=== PATIENT | male | born 1970 | race Caucasian/White ===

== ENCOUNTER 2023-09-29 17:25 | Emergency (ER) | payer BC, SELFPAY ==
--- NOTE | ~2023-09-29 | XR_ITS ---
EXAMINATION: XR chest 2V Exam Date/Time: 09/29/2023 18:26 PHP MAGENTO DEVELOPER HISTORY: cough Comparison: None. RESULT: Lines, tubes, and devices: None. Lungs and pleura: Hazy left mid and lower lung opacities, mild diffuse reticular opacities and promi nent pulmonary vessels. Cardiomediastinal silhouette: Stable. Other: Moderate anterior wedge deformity at L1. No acute upper abdominal finding. IMPRESSION: Pulmonary vascular congestion. Pulmonary opacities may represent asymmetric edema or infection. Moderate anterior wedge deformity at L1, presumably chronic unless accompanied by acute pain/tenderne ss Reviewed, dictated and finalized at location K. MAGENTO DEVELOPER IMPRESSION: Pulmonary vascular congestion. Pulmonary opacities may represent asymmetric edema or infection. Moderate anterior wedge deformity at L1, presumably chronic unless accompanied by acute pain/tenderness
[2023-09-29 17:38] VITALS: BP 151/57; PULSE 73; RESP 16; TEMP 36.8; O2SAT 100
--- NOTE | 2023-09-29 18:15 | ED.URI ---
HPI - URI/Sore Throat General Chief Complaint: Upper Respiratory Infection Stated Complaint: FEVER/SWEATY Source: patient Mode of arrival: ambulatory Limitations: no limitations History of Present Illness HPI Narrative: 53-year-old male presented for complaint of feeling ill for one week following Covid and flu vaccination, with fever up to 103.6. States he has been waking in the night drenched in sweat, and has sweats throughout the day. States he has sob with exertion, needs to sit after walking up stairs, and feels sob after bending over. Endorses occasional cough and mild nasal congestion. Tested negative for covid yesterday. Not taking anything for symptoms. Denies sick contacts. States he was dx with CHF this spring, and admits to only taking the water pill maybe 2 days/week. Denies cp, palpitations, swelling, wheezing, n/v/d or lethargy. Related Data Home Medications Medication Instructions Recorded Confirmed furosemide 20 mg tablet 20 mg PO QAM 04/23/23 09/29/23 lisinopril 40 mg tablet 40 mg PO DAILY 04/23/23 09/29/23 metoprolol tartrate 25 mg tablet 25 mg PO BID 04/23/23 09/29/23 pantoprazole 40 mg tablet,delayed 40 mg PO QAM 04/23/23 09/29/23 release (Protonix) rivaroxaban 10 mg tablet (Xarelto) 10 mg PO DAILY 04/23/23 09/29/23 tamsulosin 0.4 mg capsule (Flomax) 0.4 mg PO DAILY 04/23/23 09/29/23 Allergies Allergy/AdvReac Type Severity Reaction Status Date / Time No Known Allergies Allergy Verified 09/29/23 17:47 Review of Systems Review of Systems: CONSTITUTIONAL: reports fever, chills, sweats. EYES: Denies visual changes, redness, or discharge. ENT: Reports rhinorrhea, denies sore throat, or otalgia. CARDIOVASCULAR: Denies chest pain, palpitations, or edema. RESPIRATORY: Reports cough, sob, denies wheezing. GASTROINTESTINAL: Denies abdominal pain, nausea, vomiting, or diarrhea. GENITOURINARY: Denies dysuria or hematuria. SKIN: Denies rash, itching, or wounds. MUSCULOSKELETAL: Denies back pain, joint pain, or myalgia. NEUROLOGIC: Denies headache, numbness, tingling, or weakness. All systems reviewed & are unremarkable except as noted in HPI and below PMFSH Past Medical History Medical History Bicuspid aortic valve BPH (benign prostatic hyperplasia) CHF (congestive heart failure) Depression GERD (gastroesophageal reflux disease) Gout History of pulmonary embolism HLD (hyperlipidemia) Hypertension Low testosterone Shift work sleep disorder Surgical History Surgical History History of carpal tunnel release of both wrists History of shoulder surgery right x 3 Family History Family History Father Hypertension Mother Hypertension Social History Social History Smoking status: Never smoker Alcohol intake: never Substance use: never Living arrangements: with family Gender identity (if verbalized by the patient): Male Comments At time of signature, I have reviewed and agree with nursing past medical, surgical, social and family history unless otherwise noted. Please see nursing chart for further information. There is no relevant family history pertinent to the presenting complaint Exam Narrative: GENERAL: Well-appearing, in no acute distress. EYES: EOMI. No redness or drainage. Conjunctivae normal. ENT: Mucous membranes pink and moist. No rhinorrhea. TMs normal bilaterally. Throat normal. Uvula midline. NECK: Normal AROM. Supple. CHEST: No respiratory distress. Lungs clear to all rossi. HEART: Regular rate and rhythm. Murmur appreciated. ABDOMEN: Soft, nontender, nondistended, normal active bowel sounds. EXTREMITIES: Normal range of motion. No edema. SKIN: Warm, dry, no rash. Capillary refill normal. Normal skin turgor. NEURO: Alert and oriented
== END 2023-09-29 19:07 | disposition home or self-care (01) ==
PROVIDERS: Emergency Provider Nurse Practitioner Family; PCP Family Medicine
DX: R06.02 Shortness of breath (principal); N40.0 Benign prostatic hyperplasia without lower urinary tract symptoms; I11.0 Hypertensive heart disease with heart failure; I50.9 Heart failure, unspecified; K21.9 Gastro-esophageal reflux disease without esophagitis; M10.9 Gout, unspecified
CPT/HCPCS: 71046; 99213; G0463

== ENCOUNTER 2023-10-04 09:54 | Emergency (ER) | payer BC, SELFPAY ==
[2023-10-04] VITALS (13 sets, daily range): BP systolic 127–140; BP diastolic 54–63; PULSE 61–83; RESP 0–26; TEMP 36.2–37.9; O2SAT 94–100
--- NOTE | ~2023-10-04 | CT_ITS ---
EXAMINATION: CTA chest PE protocol DATE: 10/04/2023 11:06 INDICATION: Shortness of breath, elevated d-dimer TECHNIQUE: Computed tomography angiography (CTA) of the chest was performed with 100 mL Omnipaque-350 intravenous contrast timed to evaluate the pulmonary arteries. Coronal maximum intensity projection 3D-reconstructions were created by the technologist. The dose-length product (DLP) was 538.03 mGy-cm. Automated exposure control and iterative reconstruction technique were employed. COMPARISON: None. FINDINGS: The pulmonary arteries are well-opacified. No pulmonary embolism is identified. There is en largement of the main and central pulmonary arteries, consistent with pulmonary hypertension. Cardiom egaly is noted. There are no pathologically enlarged thoracic lymph nodes. There is mild smooth inter lobular septal thickening of the lungs. Subtle groundglass opacities are noted. No pleural effusion o r pneumothorax. There is a 10 mm cyst of the left hepatic lobe. There is a 3 mm nonobstructing stone of right kidney. There are surgical changes of the right shoulder. There is mild thoracic spondylosis . Mild anterior vertebral body wedging at the thoracolumbar junction is likely physiologic. IMPRESSION: 1. No pulmonary embolus identified. 2. Cardiomegaly with mild pulmonary edema. 3. Findings consistent with pulmonary hypertension. Reviewed, dictated and finalized at location F. TY SCIENTIST
--- NOTE | ~2023-10-04 | XR_ITS ---
EXAMINATION: XR chest 2V DATE: 10/04/2023 10:28 INDICATION: Shortness of breath and fever TECHNIQUE: PA and lateral views of the chest are obtained. COMPARISON: 09/29/2023 FINDINGS: There is a persistent mild diffuse interstitial pattern. No pleural effusion or pneumothora x. Cardiomegaly is noted. There is mild anterior wedging of lower thoracic and upper lumbar vertebral bodies, likely physiologic. Surgical changes are noted in the right shoulder. IMPRESSION: 1. Cardiomegaly with mild pulmonary edema. Reviewed, dictated and finalized at location F. ICATIONS SYSTEM ANALYST
--- NOTE | 2023-10-04 10:01 | ECG_ITS ---
Measurements Intervals [place] Rate: 63 P: 12 AL: 174 QRS: 61 QRSD: 115 T: 92 QT: 429 QTc: 439 Interpretive Statements SINUS RHYTHM ATRIAL PREMATURE COMPLEX BORDERLINE R WAVE PROGRESSION, ANTERIOR LEADS NONSPECIFIC ST & T-WAVE ABNORMALITY- LAT/HIGH LAT LEADS BASELINE ARTIFACT- I, II, AVR, AVL, AVF BORDERLINE ECG NO PREVIOUS ECG AVAILABLE FOR COMPARISON Electronically Signed On 10-04-2023 11:01:38 GYM MANAGER by Danyel Singh D.O.
--- NOTE | 2023-10-04 10:07 | ED.GENADULT ---
HPI - General Adult General Chief complaint: Shortness of Breath/Dyspnea Stated complaint: SOB Time Seen by Provider: 10/04/23 09:58 History of Present Illness HPI narrative: 53-year-old male with history of a bicuspid aortic valve and early onset CHF presents to the emergency department for evaluation of intermittent fevers and shortness breath. Patient states symptoms started few weeks ago when he was running a high fever. Patient did follow-up with the urgent care at that time and patient was negative for COVID. Patient was instructed to restart his medications. Patient states he did begin to feel improved both course of the last few days he has had worsening of his symptoms. Related Data Home Medications Medication Instructions Recorded Confirmed furosemide 20 mg tablet 20 mg PO QAM 04/23/23 09/29/23 lisinopril 40 mg tablet 40 mg PO DAILY 04/23/23 09/29/23 metoprolol tartrate 25 mg tablet 25 mg PO BID 04/23/23 09/29/23 pantoprazole 40 mg tablet,delayed 40 mg PO QAM 04/23/23 09/29/23 release (Protonix) rivaroxaban 10 mg tablet (Xarelto) 10 mg PO DAILY 04/23/23 09/29/23 tamsulosin 0.4 mg capsule (Flomax) 0.4 mg PO DAILY 04/23/23 09/29/23 Allergies Allergy/AdvReac Type Severity Reaction Status Date / Time No Known Allergies Allergy Verified 10/04/23 09:55 Review of Systems Review of Systems: All systems reviewed & are unremarkable except as noted in HPI and below PMFSH Past Medical History Medical History Bicuspid aortic valve BPH (benign prostatic hyperplasia) CHF (congestive heart failure) Depression GERD (gastroesophageal reflux disease) Gout History of pulmonary embolism HLD (hyperlipidemia) Hypertension Low testosterone Shift work sleep disorder Surgical History Surgical History History of carpal tunnel release of both wrists History of shoulder surgery right x 3 Family History Family History Father Hypertension Mother Hypertension Social History Social History Smoking status: Never smoker Alcohol intake: never Substance use: never Living arrangements: with family Gender identity (if verbalized by the patient): Male Exam Narrative: APPEARANCE: Well appearing, no pain, no distress, well-nourished. HEAD: normocephalic, atraumatic. EYES: PERRLA/EOMI, conjunctivae clear. NOSE: Normal no drainage EARS:TMS clear with good light reflex. THROAT: Pharynx clear, no exudate. NECK: Supple. No adenopathy, no masses. RESPIRATORY: Airway patent, respirations nonlabored. Clear to auscultation bilaterally, no rales, rhonchi, wheezing. CARDIOVASCULAR: Regular rate and rhythm without murmurs rubs or gallops. ABDOMINAL: Soft, nontender, nondistended, normal bowel sounds MUSCULOSKELETAL: Moves all extremities. Strength/ROM intact, No edema, No calf tenderness. NEURO: Alert. Cranial nerves II through XII intact. Good gait. Good coordination SKIN: Warm, dry. Normal Color Course Course Emergency Course: 53-year-old male presents to the emergency department for evaluation of intermittent fever and shortness of breath. Patient was afebrile, patient does have a leukocytosis of 12.2 and hemoglobin of 10.8. His x-ray did show cardiomegaly. Patient's D-dimer was elevated in PE study showed no evidence of pulmonary embolism. Patient does feel improved with treatment. Patient and family are updated on results of the workup beta was encouraged close follow-up with his primary care physician and with cardiology. All questions and concerns were addressed and patient was well-appearing at time of discharge. Vital Signs Vital signs: Vital Signs Temperature 97.1 F L 10/04/23 10:14 Pulse Rate 64 10/04/23 10:14 Respiratory Rate 18 10/04/23 10:14 Blood Pressure 133/62
[2023-10-04 10:19] LABS: Basophils Percent Auto 0.2 % (0.2-1.2); Eosinophils Absolute Auto 0.2 K/mm3 (0-0.3); Eosinophils Percent Auto 1.6 % (0-4.4); Hematocrit 35.4 % (42.0-52.0); Hemoglobin 10.8 g/dL (14.0-18.0); Immature Granulocyte Absolute 0.08 K/mm3 (0.00-0.031); Immature Granulocyte Percent A 0.7 % (0-0.5); Lymphocytes Absolute Auto 1.41 K/mm3 (0.9-3.2); Lymphocytes Percent Auto 11.5 % (18.3-44.2); Mean Corpuscular HGB Conc 30.5 g/dl (32-36); Mean Corpuscular Volume 85.1 fl (80-100); Mean Platelet Volume 9.3 fl (7.4-10.4); Monocytes Absolute Auto 0.8 K/mm3 (0.1-0.6); Monocytes Percent Auto 6.5 % (2.6-8.5); Neutrophils Absolute Auto 9.7 K/mm3 (1.3-6.7); Neutrophils Percent Auto 79.5 % (45.5-73.1); Platelet Count Result 212 k/mm3 (150-375); Red Blood Count 4.16 M/mm3 (4.6-6.20); White Blood Count 12.2 K/mm3 (4.5-10.0)
[2023-10-04 10:29] LABS: Alanine Aminotransferase 47 U/L (6-50); Albumin Level 3.9 g/dL (3.5-5.1); Alkaline Phosphatase 102 U/L (38-126); Anion Gap 11 mmol/L (8-16); Aspartate Amino Transferase 37 U/L (17-59); Bilirubin,Total 0.7 mg/dL (0.2-1.3); Blood Urea Nitrogen 18 mg/dL (9-20); Carbon Dioxide 25 mmol/L (22-30); Chloride 105 mmol/L (98-107); Estimated Glomerular Filt Rate > 60; Glucose 143 mg/dL (65-110); Sodium 141 mmol/L (137-145)
[2023-10-04 10:37] LABS: D Dimer 0.62 ug/mL (<0.48)
[2023-10-04 10:56] LABS: Influenza A QL RT-PCR Negative (Negative); Influenza B QL RT-PCR Negative (Negative); RSV RNA, RT-PCR Negative (Negative); SARS-CoV-2 RNA PCR Negative (Negative)
[2023-10-04 11:10] LABS: Troponin I 0.016 ng/mL (0.000-0.034)
[2023-10-04 13:58] LABS: Troponin I 0.013 ng/mL (0.000-0.034)
== END 2023-10-04 14:59 | disposition home or self-care (01) ==
PROVIDERS: Emergency Provider Emergency Medicine; PCP Family Medicine
DX: R06.02 Shortness of breath (principal); R53.83 Other fatigue; Z20.822 Contact with and (suspected) exposure to COVID-19; Q23.1 Congenital insufficiency of aortic valve; I50.9 Heart failure, unspecified; I11.0 Hypertensive heart disease with heart failure; E78.5 Hyperlipidemia, unspecified; N40.0 Benign prostatic hyperplasia without lower urinary tract symptoms; K21.9 Gastro-esophageal reflux disease without esophagitis; M10.9 Gout, unspecified; Z86.711 Personal history of pulmonary embolism; I51.7 Cardiomegaly; I49.1 Atrial premature depolarization; R94.31 Abnormal electrocardiogram [ECG] [EKG]
CPT/HCPCS: 36415; 71046; 71275; 80053; 84484; 85025; 85380; 87637; 93005; 99284; Q9967

== ENCOUNTER 2023-10-08 16:00 | Outpatient (CLI) | payer BC, SELFPAY ==
[2023-10-08 16:47] LABS: Basophils Percent Auto 0.4 % (0.2-1.2); Eosinophils Absolute Auto 0.2 K/mm3 (0-0.3); Eosinophils Percent Auto 1.8 % (0-4.4); Hematocrit 35.6 % (42.0-52.0); Immature Granulocyte Absolute 0.04 K/mm3 (0.00-0.031); Immature Granulocyte Percent A 0.4 % (0-0.5); Lymphocytes Absolute Auto 1.22 K/mm3 (0.9-3.2); Lymphocytes Percent Auto 11.4 % (18.3-44.2); Mean Corpuscular HGB Conc 30.9 g/dl (32-36); Mean Corpuscular Hemoglobin 26.1 pg (26-34); Mean Corpuscular Volume 84.4 fl (80-100); Mean Platelet Volume 9.6 fl (7.4-10.4); Monocytes Absolute Auto 0.8 K/mm3 (0.1-0.6); Monocytes Percent Auto 7.3 % (2.6-8.5); Neutrophils Absolute Auto 8.5 K/mm3 (1.3-6.7); Neutrophils Percent Auto 78.7 % (45.5-73.1); Platelet Count Result 326 k/mm3 (150-375); Red Blood Count 4.22 M/mm3 (4.6-6.20); Red Cell Distribution Width 15.9 % (11.5-14.5); White Blood Count 10.7 K/mm3 (4.5-10.0)
[2023-10-08 16:48] LABS: Appearance Urine Clear (Clear); Bilirubin Urine Negative (Negative); Blood Urine Negative (Negative); Color Urine Yellow (Yellow); Glucose Urine UA Negative (Negative); Ketones Urine Trace mg/dL (Negative); Leukocyte Esterase Ur Negative LEU/UL (NEGATIVE); Nitrate Urine Negative (Negative); Protein Urine Negative (Negative); Specific Grav Ur 1.024 (1.001-1.035); pH Urine 5.5 (5.0-9.0)
[2023-10-08 16:56] LABS: Add Urine Microscopic? NO
[2023-10-08 16:57] LABS: Alanine Aminotransferase 46 U/L (6-50); Alkaline Phosphatase 122 U/L (38-126); Anion Gap 14 mmol/L (8-16); Aspartate Amino Transferase 31 U/L (17-59); Bilirubin,Total 0.9 mg/dL (0.2-1.3); Blood Urea Nitrogen 24 mg/dL (9-20); Calcium 9.2 mg/dL (8.4-10.2); Carbon Dioxide 25 mmol/L (22-30); Chloride 102 mmol/L (98-107); Estimated Glomerular Filt Rate > 60; Glucose 109 mg/dL (65-110); Potassium 3.6 mmol/L (3.4-5.0); Sodium 141 mmol/L (137-145)
== END 2023-10-08 16:01 | disposition home or self-care (01) ==
LOC: ANHLAB 16:01
PROVIDERS: PCP Family Medicine; Visit Provider Physician Assistant
DX: N39.0 Urinary tract infection, site not specified (principal); R50.9 Fever, unspecified; R10.9 Unspecified abdominal pain; R31.9 Hematuria, unspecified
CPT/HCPCS: 36415; 80053; 81003; 85025; 87086

== ENCOUNTER 2023-10-09 09:43 | Emergency (ER) | payer BC, SELFPAY ==
--- NOTE | ~2023-10-09 | XR_ITS ---
EXAMINATION: XR cervical spine 4-5V DATE: 10/09/2023 10:24 INDICATION: Right-sided neck pain. TECHNIQUE: 4 views of cervical spine were obtained. COMPARISON: None. FINDINGS: There is 12 degrees dextroscoliosis of cervical spine. There is kyphosis of cervical spine. There is 2 mm retrolisthesis of C6 on C7. There is mild chronic anterior wedging of C6 vertebral bod y. There is mildly decreased disc height at C4-C5 and C5-C6 and moderately decreased disc height at C 6-C7. There is multilevel uncovertebral joint osteoarthritis, severe on the right at C4-C5 and bilate rally at C6-C7. There is multilevel mild facet joint osteoarthritis. There is mild central canal sten osis at C5-C6 and C6-C7. No prevertebral soft tissue swelling. IMPRESSION: 1. Moderate cervical spondylosis. 2. Cervical kyphosis and dextroscoliosis. Reviewed, dictated and finalized at location A. SCIENCE TECHNICAL OFFICER
[2023-10-09 09:58] VITALS: BP 142/65; PULSE 74; RESP 16; TEMP 35.6; O2SAT 100
--- NOTE | 2023-10-09 10:03 | ED.NECK ---
HPI - Neck Pain/Injury General Chief Complaint: Neck Pain/Injury Stated Complaint: NECK PAIN Time Seen by Provider: 10/09/23 10:06 Source: patient Mode of arrival: ambulatory Limitations: no limitations History of Present Illness HPI Narrative: 53 year old male presenting for complaint of neck pain for 6 days. He states pain is slightly worse than onset. Pain is to the back of the neck, shoots to right shoulder. Pain worse when turning head or any head movements, reports slightly decreased ROM to neck due to pain. Reports full ROM to upper extremities without neck pain. Denies numbness, tingling or weakness of upper extremities; denies confusion, lethargy, n/v/d/f/c. Patient reports no fever for 2 days, after recent illness. Taking occasional ibuprofen and changed his pillow. Related Data Home Medications Medication Instructions Recorded Confirmed furosemide 20 mg tablet 20 mg PO QAM 04/23/23 10/09/23 lisinopril 40 mg tablet 40 mg PO DAILY 04/23/23 10/09/23 metoprolol tartrate 25 mg tablet 25 mg PO BID 04/23/23 10/09/23 pantoprazole 40 mg tablet,delayed 40 mg PO QAM 04/23/23 10/09/23 release (Protonix) rivaroxaban 10 mg tablet (Xarelto) 10 mg PO DAILY 04/23/23 10/09/23 tamsulosin 0.4 mg capsule (Flomax) 0.4 mg PO DAILY 04/23/23 10/09/23 Allergies Allergy/AdvReac Type Severity Reaction Status Date / Time No Known Allergies Allergy Verified 10/09/23 09:48 Review of Systems Review of Systems: CONSTITUTIONAL: Denies body aches, fever, chills EYES: Denies visual changes, photophobia CARDIOVASCULAR: Denies chest pain, palpitations, or edema. RESPIRATORY: Denies cough or dyspnea. GASTROINTESTINAL: Denies abdominal pain, nausea, vomiting, or diarrhea. SKIN: Denies rash, itching, or wounds. MUSCULOSKELETAL: reports neck pain, denies back pain or myalgias NEUROLOGIC: Denies headache, numbness, tingling, or weakness. All systems reviewed & are unremarkable except as noted in HPI and below PMFSH Past Medical History Medical History Bicuspid aortic valve BPH (benign prostatic hyperplasia) CHF (congestive heart failure) Depression GERD (gastroesophageal reflux disease) Gout History of pulmonary embolism HLD (hyperlipidemia) Hypertension Low testosterone Shift work sleep disorder Surgical History Surgical History History of carpal tunnel release of both wrists History of shoulder surgery right x 3 Family History Family History Father Hypertension Mother Hypertension Social History Social History Smoking status: Never smoker Alcohol intake: never Substance use: never Living arrangements: with family Gender identity (if verbalized by the patient): Male Comments At time of signature, I have reviewed and agree with nursing past medical, surgical, social and family history unless otherwise noted. Please see nursing chart for further information. There is no relevant family history pertinent to the presenting complaint Exam Narrative: GENERAL: Well-appearing, and in no acute distress. HEAD: Normocephalic, atraumatic. EYES: conjunctivae clear NECK: Supple.slightly decreased ROM due to reported pain in neck to right paraspinal region approx C4-7. No vpt or paraspinal tenderness with palpation CHEST: Speaks in full sentences. No respiratory distress. HEART: Regular rate and rhythm. Normal and equal peripheral pulses. MUSC: No Vertebral point tenderness. BUEs with normal strength and sensation, normal range of motion without neck pain with movement. No open wounds, or obvious deformity; alignment normal, pulse palpable and equal bilaterally, skin warm, dry, pink. Capillary refill less than 3 seconds. Gait steady. SKIN: Warm, dry, no rash. NEURO: Alert and oriented x3. Nec
== END 2023-10-09 10:55 | disposition home or self-care (01) ==
PROVIDERS: Emergency Provider Nurse Practitioner Family; PCP Family Medicine
DX: M54.12 Radiculopathy, cervical region (principal); N40.0 Benign prostatic hyperplasia without lower urinary tract symptoms; K21.9 Gastro-esophageal reflux disease without esophagitis; M10.9 Gout, unspecified; E78.5 Hyperlipidemia, unspecified; I11.0 Hypertensive heart disease with heart failure; I50.9 Heart failure, unspecified; Z79.01 Long term (current) use of anticoagulants
CPT/HCPCS: 72050; 99213; G0463

== ENCOUNTER 2023-10-11 20:30 | Emergency (ER) | payer BC, SELFPAY ==
[2023-10-11 20:32] VITALS: BP 152/47; PULSE 91; RESP 17; TEMP 37.8; O2SAT 95
== END 2023-10-12 01:16 | disposition left against medical advice (07) ==
LOC: ANHED 10-12 00:29
PROVIDERS: PCP Family Medicine
DX: M54.2 Cervicalgia (principal)
CPT/HCPCS: 99199

== ENCOUNTER 2024-01-14 12:37 | Outpatient (CLI) | payer BC, SELFPAY ==
[2024-01-14 13:49] LABS: INR 2.3; Prothrombin Time 26.6 Seconds (11.1-14.7)
== END 2024-01-14 12:38 | disposition home or self-care (01) ==
PROVIDERS: PCP Family Medicine
DX: Z95.2 Presence of prosthetic heart valve (principal)
CPT/HCPCS: 36415; 85610

== ENCOUNTER 2024-03-26 11:00 | Outpatient (RCR) | payer BC, SELFPAY ==
[2024-03-25 09:28] VITALS: PULSE 69
== END 2024-04-23 12:02 | disposition home or self-care (01) ==
LOC: ANHCPREHAB 11:00
PROVIDERS: PCP Family Medicine; Visit Provider Specialist
DX: Z95.2 Presence of prosthetic heart valve (principal)
CPT/HCPCS: 93798

== ENCOUNTER 2024-04-17 14:50 | Outpatient (RCR) | payer BC, SELFPAY ==
[2024-02-08 12:13] LABS: INR 2.9; Prothrombin Time 32.1 Seconds (11.1-14.7)
[2024-02-15 17:16] LABS: INR 2.8; Prothrombin Time 32.3 Seconds (11.1-14.7)
[2024-03-13 11:12] LABS: Prothrombin Time 24.2 Seconds (11.1-14.7)
[2024-03-19 14:07] LABS: INR 2.5; Prothrombin Time 28.5 Seconds (11.1-14.7)
[2024-03-28 12:46] LABS: INR 2.4; Prothrombin Time 28.4 Seconds (11.1-14.7)
[2024-04-17 15:43] LABS: Prothrombin Time 39.4 Seconds (11.1-14.7)
== END 2024-05-08 23:59 | disposition home or self-care (01) ==
LOC: ANHLAB 14:50
PROVIDERS: PCP Family Medicine; Visit Provider Physician Assistant Medical
DX: Z51.81 Encounter for therapeutic drug level monitoring (principal); I48.91 Unspecified atrial fibrillation; Z95.2 Presence of prosthetic heart valve; Z79.01 Long term (current) use of anticoagulants
CPT/HCPCS: 36415; 85610

== ENCOUNTER 2024-06-13 09:46 | Outpatient (RCR) | payer BC, SELFPAY ==
[2024-05-16 12:54] LABS: INR 2.2; Prothrombin Time 24.9 Seconds (11.1-14.7)
[2024-05-27 11:46] LABS: Prothrombin Time 23.2 Seconds (11.1-14.7)
[2024-06-13 10:35] LABS: INR 3.7; Prothrombin Time 37.2 Seconds (11.1-14.7)
== END 2024-08-14 23:59 | disposition home or self-care (01) ==
LOC: ANHLAB 09:46
PROVIDERS: PCP Family Medicine; Visit Provider Physician Assistant Medical
DX: Z51.81 Encounter for therapeutic drug level monitoring (principal); I48.91 Unspecified atrial fibrillation; Z95.2 Presence of prosthetic heart valve; Z79.01 Long term (current) use of anticoagulants
CPT/HCPCS: 36415; 85610